=== PATIENT | male | born 1980 | race Caucasian/White ===

== ENCOUNTER 2019-11-23 13:55 | Emergency (ER) | payer OTHER ==
[~2019-11-23] VITALS: Ht 172.7 cm; Wt 86.2 kg
[~2019-11-23 13:55] MED LIST: AMOXICILLIN875 MG PO; DEPAKOTE500 MG PO; MOBIC7.5 M1 PO; PREDNISONE50 MG PO; PROZAC40 MG PO
[2019-11-23] MEDS ORDERED: SUBOXONE 8 MG-1 EAC3 SUBLING (14:21)
[2019-11-23] MEDS ORDERED: NORCO 5-325 TA1 EAC1 PO (15:14)
[2019-11-23] MEDS ORDERED: BACTRIM DS TAB1 EACH PO (15:14)
[2019-11-23 16:36] VITALS: BP 116/82
== END 2019-11-23 16:36 | disposition home or self-care (01) ==
LOC: M.ERS 13:55
DX: S22.32XA Fracture of one rib, left side, initial encounter for closed fracture (principal); S30.0XXA Contusion of lower back and pelvis, initial encounter; F41.9 Anxiety disorder, unspecified; F32.9 Major depressive disorder, single episode, unspecified; L03.011 Cellulitis of right finger; F12.10 Cannabis abuse, uncomplicated; W11.XXXA Fall on and from ladder, initial encounter; Y93.89 Activity, other specified; Y92.89 Other specified places as the place of occurrence of the external cause; Y99.8 Other external cause status